=== PATIENT | female | born 1995 | race African-American/Black ===

== ENCOUNTER 2022-04-16 02:47 | Observation (INO) | payer OTHER ==
[~2022-04-16] VITALS: Ht 160 cm; Wt 84.8 kg
[2022-04-16] MEDS ORDERED: PNV91TAB6 PO (03:35)
== END 2022-04-16 05:45 | disposition home or self-care (01) ==
LOC: 8 EST LDRP 02:47
PROVIDERS: ADMIT Specialist; ATTEND Specialist
DX: O62.9 Abnormality of forces of labor, unspecified (principal); O26.893 Other specified pregnancy related conditions, third trimester; R10.30 Lower abdominal pain, unspecified; Z3A.37 37 weeks gestation of pregnancy
CPT/HCPCS: 59025; G0378; 99281